=== PATIENT | female | born 1960 | race Two or more races ===

== ENCOUNTER 2018-10-29 11:48 | Emergency (ER) | payer OTHER ==
[~2018-10-29] VITALS: Ht 162.6 cm; Wt 59.9 kg
[2018-10-29] MEDS ORDERED: SYNTHROID75 MCG (11:54)
[2018-10-29] MEDS ORDERED: TOPROL XL100 M1 (11:54)
== END 2018-10-29 16:35 | disposition home or self-care (01) ==
LOC: ER 11:48
DX: R05 Cough (principal)